=== PATIENT | female | born 1975 | race African-American/Black ===

== ENCOUNTER 2017-02-09 17:01 | Emergency (ER) | payer MEDICAID, OTHER ==
[~2017-02-09] VITALS: Ht 165.1 cm; Wt 85.3 kg
[~2017-02-09 17:01] MED LIST: BACL10TA PO; DICL75 PO; HYDR-3533 PO; TYLE1000
[2017-02-09 17:04] VITALS: BP 138/66; PULSE 101; RESP 16; TEMP 98.2; O2SAT 98
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
[2017-02-09 17:34] LABS: BLOOD, URINE LARGE (NEG); GLUCOSE,URINE NEG (NEG); KETONE, URINE TRACE mg/dL (NEG); NITRITE,URINE NEG (NEG)
[2017-02-09 17:40] LABS: BACTERIA, URINE RARE /hpf; COMMENT (UR) CULTURE INDICATED; CULTURE IF INDICATED CULTURE INDICATED; SQUAMOUS EPITHELIAL CELL URINE 0-5 /hpf (0-5); URINE COLOR YELLOW (YELLW/STRAW)
[2017-02-09 18:20] LABS: BETA HCG QUANT 5936 MIU/ML (0-5)
[2017-02-09] MEDS ORDERED: CEPH-460 PO (18:37)
[2017-02-09] MEDS ORDERED: CEPHALEXIN MONOHYDRATE 500 MG CAP PO ONE (18:45)
[2017-02-09 18:49] VITALS: BP 123/68; PULSE 68; RESP 16; O2SAT 98
[2017-02-10 00:52] LABS: CHLAMYDIA PCR NOT DETECTED (NOT DETECT); NEISSERIA PCR NOT DETECTED (NOT DETECT)
== END 2017-02-09 18:51 | disposition home or self-care (01) ==
LOC: PHED 17:01
DX: O23.11 Infections of bladder in pregnancy, first trimester (principal); N30.01 Acute cystitis with hematuria; Z3A.01 Less than 8 weeks gestation of pregnancy
CPT/HCPCS: 81001; 84702; 86901; 87086; 87210; 87491; 87591; 99284

== ENCOUNTER 2017-03-22 18:10 | Emergency (ER) | payer MEDICAID, OTHER ==
[~2017-03-22] VITALS: Ht 165.1 cm; Wt 89.5 kg
[~2017-03-22 18:10] MED LIST changes: -BACL10TA PO; +CEPH-460 PO; -DICL75 PO; -HYDR-3533 PO; -TYLE1000
[2017-03-22 18:31] VITALS: BP 168/77; PULSE 85; RESP 16; TEMP 98.2; O2SAT 97
[2017-03-22 20:00] LABS: BLOOD, URINE NEG (NEG); GLUCOSE,URINE NEG (NEG); KETONE, URINE TRACE mg/dL (NEG); NITRITE,URINE NEG (NEG); PH, URINE 6.5 (5.0-8.5)
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
[2017-03-22 20:06] LABS: RBC, URINE 0-3 /hpf (0-3); SQUAMOUS EPITHELIAL CELL URINE 0-5 /hpf (0-5); URINE COLOR YELLOW (YELLW/STRAW)
[2017-03-22 20:07] LABS: BACTERIA, URINE FEW /hpf; COMMENT (UR) CULT NOT INDICATED; CULTURE IF INDICATED CULT NOT INDICATED
[2017-03-22] MEDS ORDERED: MACR100C2 PO (20:17)
== END 2017-03-22 21:00 | disposition home or self-care (01) ==
LOC: PHED 18:10
DX: O23.40 Unspecified infection of urinary tract in pregnancy, unspecified trimester (principal); Z3A.00 Weeks of gestation of pregnancy not specified
CPT/HCPCS: 81001; 99284

== ENCOUNTER 2017-07-15 20:25 | Emergency (ER) | payer MEDICAID ==
[~2017-07-15] VITALS: Ht 165.1 cm; Wt 97.0 kg
[~2017-07-15 20:25] MED LIST changes: +MACR100C2 PO
[2017-07-15 20:44] VITALS: BP 122/58; PULSE 97; RESP 16; TEMP 98.5; O2SAT 99
[2017-07-15] MEDS ORDERED: TYLETAB34 PO (20:58)
[2017-07-15] MEDS ORDERED: SE-NTAB3 PO (20:58)
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
[2017-07-15 21:17] LABS: BILIRUBIN, URINE NEG (NEG); BLOOD, URINE SMALL (NEG); GLUCOSE,URINE NEG (NEG); KETONE, URINE TRACE mg/dL (NEG); NITRITE,URINE NEG (NEG); URINE COLOR YELLOW (YELLW/STRAW); URINE LEUKOCYTE ESTERASE SMALL (NEG)
[2017-07-15 21:21] LABS: BACTERIA, URINE MOD /hpf; CALCIUM OXALATE CRYSTALS,URINE MOD /hpf; SQUAMOUS EPITHELIAL CELL URINE > 8 /hpf (0-5)
[2017-07-15] MEDS ORDERED: MACR100C2 PO (21:43)
[2017-07-15] MEDS ORDERED: NITROFURANTOIN MONOHYD MACROCR 100 MG CAP PO ONE (21:45)
== END 2017-07-15 21:55 | disposition home or self-care (01) ==
LOC: PHEFT 20:25
DX: O26.892 Other specified pregnancy related conditions, second trimester (principal); L24.0 Irritant contact dermatitis due to detergents; O23.42 Unspecified infection of urinary tract in pregnancy, second trimester; Z3A.26 26 weeks gestation of pregnancy
CPT/HCPCS: 81001; 87086; 99284

== ENCOUNTER 2017-09-11 19:22 | Emergency (ER) | payer MEDICAID ==
[~2017-09-11] VITALS: Ht 165.1 cm; Wt 95.9 kg
[~2017-09-11 19:22] MED LIST changes: -CEPH-460 PO; +SE-NTAB3 PO; +TYLETAB34 PO
[2017-09-11 19:26] VITALS: BP 137/78; PULSE 102; RESP 18; TEMP 98.1; O2SAT 99
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
[2017-09-11 20:14] LABS: BILIRUBIN, URINE NEG (NEG); BLOOD, URINE NEG (NEG); GLUCOSE,URINE NEG (NEG); KETONE, URINE TRACE mg/dL (NEG); NITRITE,URINE NEG (NEG); URINE COLOR YELLOW (YELLW/STRAW); URINE LEUKOCYTE ESTERASE MOD (NEG)
[2017-09-11 20:21] LABS: MUCUS URINE MANY /lpf (OCC)
[2017-09-11 20:22] LABS: AMORPHOUS SEDIMENT, URINE FEW; BACTERIA, URINE FEW /hpf; SQUAMOUS EPITHELIAL CELL URINE > 8 /hpf (0-5); WBC, URINE 15-19 /hpf (0-5)
[2017-09-11] MEDS ORDERED: LIDOCAINE HCL 1% 50 ML VIAL IM ONE (20:30)
[2017-09-11] MEDS ORDERED: MACR100C2 PO (20:33)
[2017-09-11] MEDS ORDERED: LIDOCAINE HCL 1% PF 5 ML AMPULE ONE (20:39)
== END 2017-09-11 21:33 | disposition home or self-care (01) ==
LOC: PHED 19:22
DX: O23.13 Infections of bladder in pregnancy, third trimester (principal); O99.713 Diseases of the skin and subcutaneous tissue complicating pregnancy, third trimester; L30.9 Dermatitis, unspecified; Z3A.39 39 weeks gestation of pregnancy
CPT/HCPCS: 81001; 87086; 96372; 99284; J0696